=== PATIENT | male | born 1955 | race African-American/Black ===

== ENCOUNTER 2017-11-26 03:15 | Emergency (ER) | payer MEDICAID ==
[~2017-11-26] VITALS: Ht 175.3 cm; Wt 73.0 kg
[~2017-11-26 03:15] MED LIST: UNK MEDS
[2017-11-26 03:26] VITALS: BP 141/83
[2017-11-26] MEDS ORDERED: SODIUM CHLORIDE 0.9% 1,000 ML IV ONE (04:13)
[2017-11-26] MEDS ORDERED: INSULIN REGULAR (HUMULIN R) 300UNITS/3ML IV ONE (04:15)
== END 2017-11-26 06:20 | disposition left against medical advice (07) ==
LOC: ER 03:16
DX: E11.65 Type 2 diabetes mellitus with hyperglycemia (principal); I10 Essential (primary) hypertension; E78.00 Pure hypercholesterolemia, unspecified; Z91.14 Patient's other noncompliance with medication regimen; Z79.84 Long term (current) use of oral hypoglycemic drugs
CPT/HCPCS: 99283; J7030